=== PATIENT | female | born 1935 | race Two or more races ===

== ENCOUNTER → 2024-12-08 | Emergency (ER) | payer OTHER ==
[~2024-12-08] VITALS: Ht 121.9 cm; Wt 58.1 kg
[~2024-12-08] MED LIST: CLARITIN10 M1 PO; EAR WAX DROPS15 M1; FARXIGA10 MG PO; GRALISE600 MG; PEPCID AC20 MG PO
[2024-12-08 12:38] LABS: BASO % 0.9 % (0.1-1.2); EOS # 0.05 (0.04-0.54); EOS % 0.9 % (0.7-7.0); HEMOGLOBIN 14.1 g/dL (11.2-15.7); LYMPH # 1.01 (1.18-3.74); LYMPH % 17.4 % (19.3-53.1); MEAN CORPUSCULAR HEMOGLOBIN 29.4 pg (25.6-32.2); MONO # 0.43 (0.24-0.82); MONO % 7.4 % (4.7-12.5); NEUT # 4.26 (1.56-6.13); NEUT % 73.2 % (34.0-71.1); PLATELET COUNT 227 K/uL (163-369); RED CELL DISTRIBUTION WIDTH 13.2 % (11.6-14.4)
[2024-12-08 13:03] LABS: URINE APPEARANCE Clear; URINE BILIRRUBIN Negative (NEGATIVE); URINE BLOOD Small; URINE COLOR Yellow; URINE KETONE Negative (NEGATIVE); URINE LEUKOCYTE Negative; URINE NITRATE Negative; URINE PROTEIN Negative (NEGATIVE); URINE UROBILINOGEN 0.2 E.U./dl
[2024-12-08 13:04] LABS: URINE BACTERIA 14.6 uL (0.0-1933); URINE EPITHELIAL CELLS 2.3 uL (0.0-38.8); URINE RBC 15.6 uL (0.0-20.8)
[2024-12-08 13:13] LABS: URINE GLUCOSE >=1000 MG/DL (NEGATIVE); URINE WBC 1.4 uL (0.0-23.2)
[2024-12-08 13:15] LABS: ALBUMIN 3.6 gm/dL (3.4-5.0); ALT/SGPT 20 U/L (12-78); AST/SGOT 25 U/L (15-37); BILIRUBIN TOTAL 0.51 mg/dL (0.3-1.2); CALCIUM 9.1 mg/dL (8.5-10.1); CREATININE SERUM 1.14 mg/dL (0.55-1.02); GFR 44.88; GLOBULINA 3.7 G/DL (2.4-3.5); LDH 260 U/L (84-246); PHOSPHOKINASE CREATININE 83 U/L (26-192); POTASSIUM 4.46 mEq/L (3.5-5.1); TOTAL PROTEIN 7.3 gm/dL (6.4-8.2)
== END | disposition home or self-care (01) ==
LOC: ER 11:07
PROVIDERS: General Practice
DX: R00.2 Palpitations (principal); R20.0 Anesthesia of skin; R20.2 Paresthesia of skin; E11.9 Type 2 diabetes mellitus without complications; Z88.7 Allergy status to serum and vaccine